=== PATIENT | male | born 1955 | race Caucasian/White ===

== ENCOUNTER 2016-10-20 15:47 | Observation (INO) | payer OTHER ==
[2016-10-20] MEDS ORDERED: KETOROLAC TROMETHAMINE INJ 30 MG/ML VIAL IV ONE (16:32)
[2016-10-20] MEDS ORDERED: HYDROcodone 10MG/APAP 325MG 1 EA TAB PO ONE (16:33)
[2016-10-20] MEDS: SODIUM CHLORIDE 0.9% (FLUSH) 10 ML SYG IV PRN (16:41)
--- NOTE | 2016-10-20 17:26 | ED.PDOC ---
History of Present Illness - General Chief Complaint: ENT Problem Stated Complaint: R SIDED NECK SWELLING Time Seen by Provider: 10/20/16 16:30 Source: patient, family Exam Limitations: no limitations - History of Present Illness Initial Comments: PT PRESENTS TO ED REQUESTING CT OF SOFT TISSUES OF THE NECK FOR RIGHT SIDED SUBMANDIBULAR AND NECK SWELLING THAT HAS BEEN GETTING PROGRESSIVELY WORSE OVER THE PAST WEEK. PT REPORTS THAT HE HAS HAD SYMPTOMS OF RIGHT EAR PAIN AND SORE THROAT FOR THE PAST 2 MONTHS AND HAS BEEN ON 2 ROUNDS OF ANTIBIOTICS WITHOUT IMPROVEMENT OF SYMPTOMS. PT STATES THAT HIS GI PHYSICIAN INSTRUCTED HIM TO COME TO THE ED AND REQUEST A SOFT TISSUE NECK CT. PT DENIES FEVER, CHILLS BUT DOES REPORT FEELING GENERALIZED MALAISE. Timing/Duration: gradual Severity: moderate EENT Location: ear (R), throat Prearrival Treatment: prescription meds Improving Factors: nothing Worsening Factors: nothing Associated Symptoms: facial pain/swelling, malaise, sore throat Allergies/Adverse Reactions: Allergies NO KNOWN ALLERGY Allergy (Verified 09/08/16 14:21) Home Medications: Ambulatory Orders Albuterol Inhaler 0 mg INH DAILY 05/19/14 Combivent Inhaler 0 mg INH DAILY 05/19/14 Esomeprazole Magnesium [Nexium] 40 mg PO DAILY #0 05/19/14 Spiriva Handihaler 0 mg INH DAILY 05/19/14 DULoxetine HCL [Cymbalta] 30 mg PO BID 08/13/14 Gabapentin [Neurontin] 300 mg PO TID #60 cap 08/25/14 Naproxen Sodium [Anaprox Ds] 550 mg PO BID #30 tab 11/25/14 Epinephrine [Epipen 2-Abebe] 0.3 mg IM ONCE PRN #1 pack 03/21/15 Azithromycin 500 mg PO DAILY #7 tab 06/11/16 predniSONE [Prednisone] 20 mg PO DAILY #2 tab 06/11/16 Methocarbamol [Robaxin] 750 mg PO TID #30 tab 08/23/16 Amitriptyline HCl [Elavil] 25 mg PO DAILY #14 tab 09/08/16 Ketorolac Tromethamine [Toradol Tabs] 10 mg PO Q6HR #20 tab 09/08/16 Review of Systems - Review of Systems Constitutional: States: malaise. Denies: chills, fever EENTM: States: see HPI, throat pain, throat swelling. Denies: nose congestion Respiratory: Denies: cough, short of breath Cardiology: Denies: chest pain, palpitations Gastrointestinal/Abdominal: Denies: abdominal pain, diarrhea, vomiting Musculoskeletal: Denies: back pain, joint pain Skin: Denies: change in color, rash Neurological: States: no symptoms reported Endocrine: States: no symptoms reported Hematologic/Lymphatic: States: no symptoms reported Past Medical History (General) - Patient Medical History Hx Seizures: No Hx Stroke: No Hx Dementia: No Hx Asthma: Yes Hx of COPD: Yes Hx Cardiac Disorders: No Hx Congestive Heart Failure: No Hx Pacemaker: No Hx Hypertension: Yes Hx Thyroid Disease: No Hx Diabetes: No Hx Gastroesophageal Reflux: Yes - Liver cirrhosis Hx Renal Disease: No Hx Cancer: No Hx of HIV: No Hx Hepatitis C: Yes - RECENTLY FINISHED TREATMENT Hx MRSA: No Hx Other - free text: RHEUMATOID ARTHRITIS Surgical History: other Other Surgeries:: BACK SURGERY, CATARACT SURGERY B/L - Vaccination History Hx Tetanus, Diphtheria Vaccination: Yes Hx Influenza Vaccination: No Hx Pneumococcal Vaccination: No - Social History Hx Tobacco Use: Yes - DIPS SNUFF Hx Chewing Tobacco Use: Yes Hx Alcohol Use: Yes - former Hx Substance Use: No Hx Substance Use Treatment: No Hx Depression: No Hx Physical Abuse: No Hx Emotional Abuse: No Hx Suspected Abuse: No - Female History Patient : No Family Medical History - Family History Mother Family History: No Known Living Status: Hx Family Asthma: Yes Hx Cardiac Disease: Yes Hx Family Diabetes: Yes Hx Family;Other: fibromyalgia Physical Exam - Physical Exam General Appearance: Alert, No apparent distress Eye Exam: bilateral normal Ear Exam: right ear: TM normal - MILD ERYTHEMA WITH SOME SCARRING NOTED, bilateral ear: auricle normal, canal normal Nasal Exam: normal inspection Throat Exam: normal mouth inspection Neck: lymphadenopathy (R), tender lateral - RIGHT SUBMANDIBULAR AND RIGHT LATERAL CERVICAL REGION, WITH SWELLING, TENDERNESS, AND ERYTHEMA Cardiovascular/Respiratory: regular rate, rhythm, no M/R/G, normal breath sounds , no respiratory distress Neurologic: normal mood/affect, oriented x 3 Skin Exam: normal color, warm/dry Progress - Progress Progress: 10/20/16 18:49 ON RE-EVALUATION PT CONTINUES TO COMPLAIN OF PAIN DESPITE TORADOL AND NORCO. LABS AND CT FINDINGS DISCUSSED WITH PT. PT AGREES TO BE ADMITTED FOR IV ABX FOR RIGHT SIDED FACIAL CELLULITIS. - Results/Orders Results/Orders: 10/20/16 16:31 IV Care:Saline Lock per Protoc QSHIFT Sodium Chloride 0.9% (Flush) [Saline Flush Syringe] 10 ml IV PRN PRN 10/20/16 16:33 Hold Metformin x 48Hrs [id number] 10/20/16 16:54 BLOOD CULTURE Stat 10/20/16 17:11 STREP A SCREEN CULTURE Stat 10/20/16 18:36 Clindamycin IV 900Mg [Cleocin IV 900mg] 900 mg Premix Bag 1 bag IVPB ONCE Laboratory Results - last 24 hr 10/20/16 10/20/16 16:54 16:59 WBC 7.0 RBC 4.89 Hgb 14.8 Hct 45.4 MCV 92.9 MCH 30.2 MCHC 32.5 L RDW 13.4 Plt Count 230 MPV 7.3 L Absolute Neuts (auto) 4.80 Absolute Lymphs (auto) 1.50 Absolute Monos (auto) 0.40 Absolute Eos (auto) 0.20 Absolute Basos (auto) 0.10 Neutrophils % 68.2 Lymphocytes % 21.1 Monocytes % 6.1 Eosinophils % 3.1 Basophils % 1.5 Sodium 137 Potassium 3.5 L Chloride 101 Carbon Dioxide 27 Anion Gap 12.5 BUN 16 Creatinine 0.91 BUN/Creatinine Ratio 17.6 Random Glucose 161 H Serum Osmolality 278.5 Calcium 9.0 Total Bilirubin 0.8 AST 19 ALT 18 Alkaline Phosphatase 65 Serum Total Protein 8.5 H Albumin 4.4 Globulin 4.1 H Albumin/Globulin Ratio 1.1 Departure - Departure Clinical Impression: Facial cellulitis, Failure of outpatient treatment Time of Disposition: 18:51 - CASE DISCUSSED WITH DR. SAXENA WHO AGREES TO ADMIT PT FOR IV ABX Disposition: Admit Patient Condition: Good Departure Forms: ED Discharge - Pt. Copy, Patient Portal Self Enrollment Home Medications: Ambulatory Orders Albuterol Inhaler 0 mg INH DAILY 05/19/14 Combivent Inhaler 0 mg INH DAILY 05/19/14 Esomeprazole Magnesium [Nexium] 40 mg PO DAILY #0 05/19/14 Spiriva Handihaler 0 mg INH DAILY 05/19/14 DULoxetine HCL [Cymbalta] 30 mg PO BID 08/13/14 Gabapentin [Neurontin] 300 mg PO TID #60 cap 08/25/14 Naproxen Sodium [Anaprox Ds] 550 mg PO BID #30 tab 11/25/14 Epinephrine [Epipen 2-Abebe] 0.3 mg IM ONCE PRN #1 pack 03/21/15 Azithromycin 500 mg PO DAILY #7 tab 06/11/16 predniSONE [Prednisone] 20 mg PO DAILY #2 tab 06/11/16 Methocarbamol [Robaxin] 750 mg PO TID #30 tab 08/23/16 Amitriptyline HCl [Elavil] 25 mg PO DAILY #14 tab 09/08/16 Ketorolac Tromethamine [Toradol Tabs] 10 mg PO Q6HR #20 tab 09/08/16 Decision To Admit - Decistion To Admit Decision to Admit Reason: Admit from ER - FACIAL CELLULITIS, FAILURE OF OUTPATIENT TREATMENT Decision to Admit Date: 10/20/16 Decision to Admit Time: 18:52
[2016-10-20] MEDS ORDERED: CLINDAMYCIN IV 900MG 900 MG in PREMIX BAG 1 BAG IVPB ONE (18:36)
[2016-10-20] MEDS ORDERED: CLINDAMYCIN IV 900MG 50 ML IVPB ONE (18:45)
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
[2016-10-20] MEDS ORDERED: LEVALBUTEROL NEBS 1.25 MG/3 ML VIAL INH PRN (21:55)
[2016-10-20] MEDS ORDERED: SODIUM CHLORIDE 0.9% (FLUSH) 10 ML SYG IV PRN (21:55)
[2016-10-20] MEDS ORDERED: MAGNESIUM HYDROXIDE 30 ML UD PO PRN (21:55)
[2016-10-20] MEDS ORDERED: IV SET AND CAP CHANGE INJ INJ SCH (22:00)
[2016-10-20] MEDS ORDERED: CLINDAMYCIN IV 600MG 50 ML IVPB ONE (22:12)
[2016-10-20] MEDS: carBAMazepine 200 MG TAB PO SCH (22:19)
[2016-10-20] MEDS: HYDROcodone 5MG/APAP 325MG 1 EA TAB PO PRN (22:19)
[2016-10-20] MEDS: GABAPENTIN 300 MG CAP PO SCH (22:19)
[2016-10-20] MEDS ORDERED: POTASSIUM CHLORIDE 10 MEQ TAB PO SCH (22:30)
[2016-10-20] MEDS ORDERED: AMITRIPTYLINE HCL 25 MG TAB PO SCH (22:30)
[2016-10-20] MEDS ORDERED: TEMAZEPAM 15 MG CAP PO PRN (22:32)
[2016-10-21] MEDS ORDERED: CLINDAMYCIN IV 600MG 600 MG in PREMIX BAG 1 BAG IVPB SCH (06:00)
[2016-10-21] MEDS: SODIUM CHLORIDE 0.9% (FLUSH) 10 ML SYG IV PRN (06:06)
[2016-10-21] MEDS ORDERED: OMEPRAZOLE CAP 20 MG CAP PO SCH (06:30)
[2016-10-21] MEDS ORDERED: SODIUM CHLORIDE 0.9% 10 ML VIAL IV PRN (07:11)
[2016-10-21] MEDS ORDERED: POTASSIUM CHLORIDE 10 MEQ TAB PO SCH (07:30)
[2016-10-21] MEDS ORDERED: DULoxetine HCL 30 MG CAP PO ONE (07:32)
[2016-10-21] MEDS ORDERED: CLINDAMYCIN IV 600MG 0 ML IVPB ONE (07:33)
[2016-10-21] MEDS ORDERED: predniSONE 10 MG TAB ONE (07:33)
[2016-10-21] MEDS ORDERED: IPRATROPIUM/ALBUTEROL 3 ML VIAL INH SCH (08:00)
[2016-10-21] MEDS: HYDROcodone 5MG/APAP 325MG 1 EA TAB PO PRN (08:37)
[2016-10-21] MEDS ORDERED: SODIUM CHLORIDE 0.9% (FLUSH) 10 ML SYG IV SCH (09:00)
[2016-10-21] MEDS ORDERED: DULoxetine HCL 30 MG CAP PO SCH (09:00)
[2016-10-21] MEDS ORDERED: predniSONE 10 MG TAB PO SCH (09:00)
[2016-10-21] MEDS: GABAPENTIN 300 MG CAP PO SCH (09:23)
[2016-10-21] MEDS: carBAMazepine 200 MG TAB PO SCH (09:23)
[2016-10-21 10:22] VITALS: BP 112/70; TEMP 98.2; O2SAT 94
--- NOTE | 2016-10-21 21:28 | DS ---
SUPERVISING PHYSICIAN: Andrew Schulte M.D. DISCHARGE DIAGNOSIS: 1. Severe intermittent pain, right face, neck, and forehead chronic for the last two and a half months with no external evidence or any CT evidence to suggest underlying abscess. Probably an idiopathic trigeminal neuralgia, however cannot fully rule out multiple sclerosis or possible underlying vascular compression in the posterior fossa or cerebral pontine angle neoplasia. The patient showed some improvement slightly with initiation of Tegretol. 2. History of chronic obstructive pulmonary disease. 3. Rheumatoid arthritis. HISTORY OF PRESENT ILLNESS: Mr. Mann is a 61-year-old male patient that presented to the Emergency Department on 10/20/16 with a history of severe worsening right sided facial pain that had been present for over two months. He has been seen in the Emergency Room at [facility] twice in the month of August because of the pain of a similar nature and had some prolonged courses of antibiotics over the last several months. The pain is described primarily as deep within the region in front of the right ear and radiates up to the top of the head, but not over extend to the left side of his upper forehead and only to the right side involved, but also involves down and across the eardrum deep in his head as well as under his mandible on the right side only. He reports that he has no dental problems. The last time he saw a dentist was over a year previously and is encouraged to have a dentist assist with the ongoing evaluation when possible. In the Emergency Room, he had a CT scan of the soft tissue of the neck which failed to reveal any evidence of cellulitis or inflammatory changes in the tissues of the neck. No history of shingles. The pain in the region in front of his right ear appears to be somewhat related to the movement of his jaw , but at times it does not hurt and at other times it does. When the pain is really severe, it comes as a "shooting pain," radiating from the ear up to the top of his head on the right side or down to the area under his right jaw. It extends partway down some of the strap muscles on the right side of the neck, but not down to the midneck line or into the supraclavicular region. No significant involvement of the eye is evident. The patient was placed in the hospital for observation overnight for a couple of parenteral dosings of clindamycin in an effort to see if there was any significant cellulitis in that region since no specific evidence of abscess had been determined. It was noted by Dr. Mann on admission that the patient appeared to be presenting with a trigeminal neuralgia of the fifth cranial nerve on the right face. Several of the branches being involved intermittently and for that reason the patient will need specific advice from Neurology and possibly ENT to confirm the diagnosis and help and assist with treatment options. LABORATORY: White count on admission and discharge was within normal limits. It was 5.5. Hemoglobin 13.2, hematocrit 40.6, platelet count was 203,000. Differential was within normal limits. Sed rate was normal at 14. Chemistries showed normal electrolytes at discharge with potassium 4.3, BUN 17, creatinine 0.93, glucose 127. C reactive protein was only slightly elevated at 2.7. Urine was all within normal limits. MICROBIOLOGY: Group A Strep culture showed no Group Strep were isolated at 24 hours. Blood cultures remain negative at 24 hours. RADIOLOGY: Soft tissue neck CT with contrast per radiology interpretation showed no specific findings are noted to suggest etiology of the patient's neck pain. Please refer to that CT for full results and a detailed description of findings. HOSPITAL COURSE: Mr. Mann was admitted in observation as noted in the History of Present Illness and started on new medications that included clindamycin and Tegretol. On the morning of discharge, the patient noted that he was still having pain, however there was some numbness more than shooting pain. The clindamycin was stopped and discussion with the patient about following up with Neurology was pursued as well as I did talk to Holli Giron in regards to followup and possible findings, and current treatment plan. PLAN: The patient was discharged on 10/21/16 to have close clinical followup with Holli Giron as scheduled on 10/26/16 at 10:40 at [facility]. Holli is to arrange for a neurology consultation as well as any other specialty consultations as needed. He was to resume a regular diet and start new prescriptions as directed. He was to resume all previous medications as instructed and return to the hospital should he have either worsening or no improvement in his symptoms. At time of discharge, he had 1 prescription that was new. 1. Tegretol 200 mg twice daily, #60. Home medications were: 1. Combivent. 2. Spiriva Handihaler. 3. Nexium. 4. Albuterol inhaler. 5. Cymbalta. 6. Neurontin. 7. Naprosyn. No antibiotics were prescribed at time of discharge. The patient's condition at time of discharge was good and stable. #[id number] [facility]
--- NOTE | 2016-11-13 23:50 | CT ---
EXAM: Soft Tissue Neck w/Contrast CLINICAL INDICATION: 61-year-old male with right-sided neck swelling. COMPARISON: None. TECHNIQUE: CT neck soft tissues were performed following intravenous administration of contrast. Multiplanar reformatted images were provided. FINDINGS: Limited evaluation through the skull base reveals no acute intracranial abnormalities or abnormal post contrast enhancement. The visualized vessels are patent and normal in caliber. Few small lymph nodes are scattered throughout the neck soft tissues bilaterally none of which are pathologically enlarged by CT measurement criteria. The bilateral parotid, bilateral submandibular and thyroid glands are within normal limits. The nasal cavity, posterior nasopharynx, oral cavity, oropharynx, larynx and hypopharynx are within normal limits without abnormal enhancement mass or mass effect. The airways are patent. Evaluation through the oropharynx is limited secondary to dental amalgam. Limited evaluation of the lung apices are clear. The osseous structures reveal degenerative change at the C4-5 level with posterior osseous spurring resulting in mild central spinal canal and severe bilateral neural foraminal narrowing. IMPRESSION: No specific findings are noted to suggest etiology of the patient's neck pain. Electronically signed by: Edyta Gerber MD 10/20/2016 5:39 PM [employer]
== END 2016-10-21 12:25 | disposition home or self-care (01) ==
LOC: ER 15:47 → MS 19:32
PROVIDERS: ADMIT Emergency Medicine; ATTEND Nurse Practitioner Family
DX: R51 Headache (principal); M54.2 Cervicalgia; G89.29 Other chronic pain; J44.9 Chronic obstructive pulmonary disease, unspecified; M06.9 Rheumatoid arthritis, unspecified; Z79.51 Long term (current) use of inhaled steroids; Z79.899 Other long term (current) drug therapy; Z87.891 Personal history of nicotine dependence; Z83.3 Family history of diabetes mellitus; Z82.3 Family history of stroke
CPT/HCPCS: 36415 ×3; 70491; 80053 ×2; 81001; 85025 ×2; 85651; 86140; 87040 ×2; 87070; 87651; 94640; 96365; 96366; 96375; 99284; G0378; J1885; J3490 ×2; J7620

== ENCOUNTER → 2016-11-28 | Outpatient (CLI) | payer OTHER ==
--- NOTE | 2016-11-28 16:15 | CT ---
Procedure: CT MAXILLOFACIAL WITHOUT IV CONTRAST Exam date: 11/28/2016 2:00 PM CDT Ordering Provider: PANKAJ LOERA Clinical Indication: OTALGIA, RT EAR Comparison: None Technique: Using a helical scanner, sequential imaging of the maxillofacial region was obtained without the administration of intravenous contrast. 2-D sagittal and coronal reconstructed images were obtained. Findings: The skull base is intact. The paranasal sinuses are clear. The middle ear cavities and mastoid air cells are clear. The orbits are normal in appearance. There are no masses or fluid collections within the superficial or deep spaces of the face. There is no displaced fracture. The medial orbital valdes and orbital floors are intact bilaterally. The valdes of the frontal, maxillary, and sphenoid sinuses are clear. Each zygomatic arch is intact. Each side of the mandible and maxilla are normal. Impression: 1. Negative CT scan of the maxillofacial region without the administration of intravenous contrast. Electronically signed by: Dale Duran MD 11/28/2016 4:13 PM CDT
== END | disposition home or self-care (01) ==
LOC: CT 13:58
PROVIDERS: ATTEND Otolaryngology Otolaryngic Allergy
DX: H92.01 Otalgia, right ear (principal)

== ENCOUNTER → 2016-12-06 | Outpatient (CLI) | payer OTHER | END | disposition home or self-care (01) | LOC: YCFC.O 14:11 | PROVIDERS: ATTEND Nurse Practitioner Family | DX: Z79.891 Long term (current) use of opiate analgesic (principal) ==

== ENCOUNTER → 2017-02-28 | Outpatient (CLI) | payer OTHER | LOC: YCFC.O 14:38 | PROVIDERS: ATTEND Anesthesiology Pain Medicine | DX: Z79.891 Long term (current) use of opiate analgesic (principal) ==

== ENCOUNTER → 2017-04-11 | Outpatient (CLI) | payer OTHER | END | disposition home or self-care (01) | LOC: YCFC.O 13:24 | PROVIDERS: ATTEND Nurse Practitioner Family | DX: Z13.220 Encounter for screening for lipoid disorders (principal); M10.9 Gout, unspecified ==

== ENCOUNTER → 2017-08-01 | Outpatient (CLI) | payer OTHER ==
--- NOTE | 2017-08-01 17:42 | RAD ---
EXAM DESCRIPTION: Chest,2 Views CLINICAL HISTORY: UNSPECIFIED ASTHMA COMPARISON: 06/11/2016 FINDINGS: Two views of the chest are submitted. Cardiac silhouette is within normal limits. There is no focal parenchymal or pleural disease. There is no significant pulmonary vascular engorgement. Density suggesting kyphoplasty is again seen. IMPRESSION: No evidence of acute cardiopulmonary disease. Electronically signed by: Josiah Lang 08/01/2017 5:40 PM [facility]
== END | disposition home or self-care (01) ==
LOC: RAD 16:43
DX: J45.909 Unspecified asthma, uncomplicated (principal)

== ENCOUNTER → 2017-11-13 | Outpatient (CLI) | payer OTHER | LOC: LAB.O 11:30 | PROVIDERS: ATTEND Nurse Practitioner Family | DX: M06.4 Inflammatory polyarthropathy (principal); M10.9 Gout, unspecified; Z79.899 Other long term (current) drug therapy ==

== ENCOUNTER → 2018-02-21 | Outpatient (CLI) | payer OTHER | LOC: YCFC.O 14:00 | DX: R53.83 Other fatigue (principal) ==

== ENCOUNTER → 2018-03-28 | Outpatient (CLI) | payer OTHER ==
--- NOTE | 2018-03-28 13:44 | RAD ---
EXAM DESCRIPTION: Wrist,Right 3 Views CLINICAL HISTORY: 62 years Male, PAIN IN WRIST COMPARISON: None available. FINDINGS: The visualized bones are well-mineralized.No acute fracture or dislocation. 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 Marginal erosions are noted in the heads of the 2nd and 3rd metatarsals suspicious for inflammatory arthritis such as rheumatoid. The soft tissues appear grossly unremarkable. 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 Marginal erosions are noted in the heads of the 2nd and 3rd metatarsals suspicious for inflammatory arthritis such as rheumatoid. Electronically signed by: Hema Enriquez MD 03/28/2018 1:42 PM CDT
== END ==
LOC: RAD 11:24
DX: M19.031 Primary osteoarthritis, right wrist (principal); M25.531 Pain in right wrist

== ENCOUNTER → 2018-07-11 | Outpatient (CLI) | payer OTHER ==
--- NOTE | 2018-07-11 10:36 | CT ---
Procedure: CT LUNG SCREENING Exam Date: 07/11/2018. Ordering Provider: Jamie Lubin Clinical Indication: Z87.891 This patient meets eligibility criteria for low-dose CT lung cancer screening. Comparison: Chest x-ray 11/10/2010. Technique: Using a multislice scanner, sequential helical axial imaging was obtained in the thorax, 2.5 mm thickness, 2.5 mm separation, from the level of the thoracic inlet through the lung bases without IV contrast. A low dose protocol was utilized: CTDI: 1.76 mGy. 120. kVp. 45 mA. 2D sagittal and coronal reconstructed images, 6.0 mm thickness, were obtained. This exam was performed according to our departmental dose optimization program which includes use of automated exposure control, adjustment of the mA and/or kV according to patient size and/or use of iterative reconstruction technique. FINDINGS: Lungs and large airways: 2 mm solid nodule anterior lateral right middle lobe abutting the horizontal fissure. Second nodule slightly smaller abutting the pleura more inferiorly in the middle lobe. Hazy parenchymal density involving multiple left lower lobe basilar segments. Groundglass density abutting the left posterior lateral pleura on axial series 2, images 95 -105. 2.4 cm craniocaudal dimension. Denser scarring in the superior lingula extending to the lateral pleura, left major fissure, and mid pleura on images 73-105. Pleura: Minimal thickening with pleural involvement as noted previously. No effusion or pneumothorax bilaterally. Mediastinum and irma: evaluation limited by low dose technique and lack of IV contrast. Calcified mediastinal and right hilar nodes. No large soft tissue mass. Heart and great vessels: Minimal atherosclerotic calcification of the thoracic aorta. Chest wall, lower neck, axillae: Evaluation also limited by same factors as described above. Small thyroid gland. Upper abdomen: Included peritoneal space. No fluid. Included spleen and adrenal glands normal density. Bones: Evaluation limited by screening MIP technique. Augmentation cement in the T11 vertebral body. Multiple levels of spondylosis in the lower segments. Narrowing of the left glenohumeral joint space. IMPRESSION: 1. Small solid nodules seen in the left lung are subclinical and insignificant. Groundglass infiltrate or nodule in the left lower lobe 2.4 cm greatest diameter. Scarring in the lingula. Please see below for Lung RADS category and FOLLOW-UP.* *Lung RADS category Category 3 - Probably benign (1-2% malignancy probability), short term follow-up suggested. Nodules: Solid nodule(s) 6mm to less than 8mm at baseline, or new 4mm to under 6mm solid nodule. Part solid nodule total diameter 6mm to less than 8mm with solid component less than 6mm, or new less than 6mm total diameter nodule] [ground glass nodule(s) 20mm or greater. Follow-up: Please return for a Low Dose Chest CT in 6 months for re-evaluation. Electronically signed by: Josiah Israel MD 07/11/2018 10:35 AM CDT
== END ==
LOC: CT 08:01
PROVIDERS: ATTEND Family Medicine
DX: I10 Essential (primary) hypertension (principal); G62.9 Polyneuropathy, unspecified; F17.200 Nicotine dependence, unspecified, uncomplicated; Z12.5 Encounter for screening for malignant neoplasm of prostate; Z87.891 Personal history of nicotine dependence
CPT/HCPCS: 36415; 80053; 80061; 81001; 82607; 82746; 84153; 85025; 93005; G0297

== ENCOUNTER → 2019-01-11 | Outpatient (CLI) | payer OTHER ==
--- NOTE | 2019-01-14 13:16 | CT ---
EXAM DESCRIPTION: Chest w/o Contrast : Computed Tomography. CLINICAL HISTORY: 63 years Male LUNG NODULE. Follow-up to previous low-dose CT lung screening. COMPARISON: Low-dose CT lung screening 07/11/2018. TECHNIQUE: Spiral-axial scans at 5.0 mm intervals through the lungs and thorax without IV contrast. 2.5 x 2.5 mm lung algorithm axial reconstructions. Coronal and sagittal 2.0 Mm reconstructions. Total Exam DLP: 766.22 mGy-cm. CTDI 18.75 mGy. This exam was performed according to our departmental dose-optimization program which includes automated exposure control, adjustment of the mA and/or kV according to patient size and/or use of iterative reconstruction technique; to reduce radiation dose to as low as reasonably achievable (ALARA). Nodule measurements under 10 mm are given as mean value of 3 axes diameters. FINDINGS: Lungs and large airways: Small groundglass densities in the superior and inferior lingula, laterally in the subpleural region. Thickening of the mid lingular fissure. Pleural parenchymal scars in the lingula. Stable calcified subpleural nodule lateral right middle lobe and bibasilar posterior dependent atelectasis more left than right stable. New focal partially solid 3 mm bilobed nodule versus focal pleural thickening abutting the left upper lobe lateral subpleural on axial image 42 and 43. Mild bilateral symmetric peribronchial cuffing is stable. No new nodules, focal infiltrates or masses. Pleural spaces: Other regions of focal thickening., Otherwise negative. Mediastinum and Dyan: Limited evaluation due to lack of IV contrast. No abnormal size lymph nodes present. No dominant Soft tissue masses. Great vessels and Heart: Evaluation limited due to lack of IV contrast.. Atherosclerotic calcifications in the aortic arch. Soft tissues of neck base, axillae, and chest wall: Evaluation limited due to lack of IV contrast. Unremarkable. Upper abdomen: Included peritoneal space is unremarkable. Small hiatal hernia. Gallbladder visualized. Osseous structures: Spondylosis at multiple levels of the thoracic spine. Minimal anterior wedging T12 vertebral body. Prior vertebroplasty T11. Minimal arthrosis sternoclavicular joints. Minimal arthrosis bilateral glenohumeral joints. No lytic or blastic lesions. IMPRESSION: 1. New bilobed partially pulmonary nodule versus focal pleural thickening but the lateral pleura of the left upper lobe. Solid component is 3 mm previous groundglass densities are stable as well as pleural parenchymal thickening and thickening of the intra lingular fissure. [facility] Best Practice recommendations: Please see below*. *CATEGORY 2- Nodules with a very low likelihood (less than 1%) of becoming a clinically active cancer due to size or lack of growth. Nodules: Solid or part solid nodule(s) less than 6mm, new solid nodule less than 4mm. Ground glass nodule(s) less than 20mm or unchanged or slow growing ground glass nodule 20mm or greater. Cat 3 or 4 nodule unchanged for 3 or more months. FOLLOW-UP: Continue annual screening with a Low Dose Chest CT in 12 months for re-evaluation. Electronically signed by: Josiah Israel MD 01/14/2019 1:14 PM CDT
== END ==
LOC: CT 13:00
PROVIDERS: ATTEND Family Medicine
DX: R91.8 Other nonspecific abnormal finding of lung field (principal)

== ENCOUNTER → 2019-10-21 | Outpatient (CLI) | payer MEDICARE, OTHER ==
--- NOTE | 2019-10-21 16:00 | RAD ---
EXAM DESCRIPTION: Chest,2 Views CLINICAL HISTORY: PNEUMONIA COMPARISON: August 01, 2017 FINDINGS: The cardiac silhouette is at the upper limits of normal size, increased from the prior study. Mediastinal contours are otherwise unremarkable. Extensive airspace consolidation involving portions of the left lower lobe with possible small left-sided effusion, new from the prior study. Right lung and right pleural space are clear. No pneumothorax or acute fracture. IMPRESSION: Left lower lobe pneumonia with a possible small left-sided effusion, all new from July,. Follow-up chest radiograph after treatment is recommended to document complete resolution. Electronically signed by: Teddy Cervantes MD 10/21/2019 3:58 PM [facility]
== END ==
LOC: YCFC.O 11:50
PROVIDERS: ATTEND Family Medicine
DX: J18.9 Pneumonia, unspecified organism (principal); J90 Pleural effusion, not elsewhere classified

== ENCOUNTER → 2019-11-06 | Outpatient (CLI) | payer MEDICARE, OTHER ==
--- NOTE | 2019-11-07 08:44 | RAD ---
EXAM DESCRIPTION: Chest,2 Views CLINICAL HISTORY: PNEUMONIA COMPARISON: Previous study October 21, 2019 TECHNIQUE: PA/lateral FINDINGS: Heart size is normal with normal pulmonary vascularity. Moderate sized left pleural effusion with infiltrate in the left lower lobe and/or lingula consistent with pneumonia. Effusion appears similar to previous study. Decubitus views may be helpful to differentiate loculated effusion from free-flowing pleural fluid. Right lung appears clear and hyperexpanded. Heart and mediastinum are shifted toward the left consistent with volume loss on the left side. Lateral view shows methacrylate in the lower T-spine. No pneumothorax. Lungs are clear with no consolidating infiltrate. Lateral view shows intact sternum and T-spine. IMPRESSION: Moderate left pleural effusion with left lower lobe infiltrate/volume loss. Electronically signed by: Jori Pat MD 11/07/2019 8:42 AM [employer]
== END ==
LOC: RAD 12:48
PROVIDERS: ATTEND Family Medicine
DX: J18.9 Pneumonia, unspecified organism (principal); J90 Pleural effusion, not elsewhere classified

== ENCOUNTER → 2020-10-13 | Outpatient (CLI) | payer MEDICARE, OTHER ==
--- NOTE | 2020-10-13 17:37 | RAD ---
EXAM: Chest,2 Views CLINICAL INDICATION: 65-year-old male with COPD. TECHNIQUE: Two-view, PA and lateral projections of the chest were obtained. COMPARISON: 11/06/2019. FINDINGS: Unremarkable cardiac and mediastinal silhouette. Heart size is normal. Tortuous thoracic aorta. Lungs are clear without focal opacity, pneumothorax or pleural effusions. The visualized bones are within normal limits. Stable appearance of the sclerosis within the lower to midthoracic vertebrae. IMPRESSION: No acute cardiopulmonary abnormalities. Electronically signed by: Edyta Gerber MD 10/13/2020 5:35 PM [facility]
== END ==
LOC: YCFC.O 16:11
PROVIDERS: ATTEND Family Medicine
DX: J44.1 Chronic obstructive pulmonary disease with (acute) exacerbation (principal); Z87.09 Personal history of other diseases of the respiratory system; R53.83 Other fatigue; Z12.5 Encounter for screening for malignant neoplasm of prostate
CPT/HCPCS: 36415; 71046; 83880; 84443; 85025; G0103